=== PATIENT | male | born 1955 | race Caucasian/White ===

== ENCOUNTER → 2018-05-01 | Outpatient (CLI) | payer OTHER ==
[~2018-05-01] MED LIST: AMLODIPINE BESY10 MG PO; ANAPROX DS550 MG PO; ASPIRIN EC81 M1 PO; ASPIRIN325 PO; FISH OIL 1,0001 EAC5; FISH OIL 1,0001 EAC5 PO; FLEXERIL PO; HCTZ PO; HYDROCHLOROTH12.5 MG PO; LEVITRA PO; LOTENSIN40 MG PO; MOBIC15 MG PO; NORCO 5-325 TA1 EACH PO; NORFLEX100 MG PO; PRILOSEC 20 MG20 MG PO; WELCHOL 625 MG625 MG PO
--- NOTE | 2018-05-03 23:53 | SLE ---
[facility] [place] [address] POLYSOMNOGRAPHY STUDY Name: BERNARDO BERTRAND ALAN Room #: REG [facility].#: [id number] Admission: 05/01/18 ������������������ Attend Phys: Wang Rutledge MD Discharge: ������������������ Date of : 55 Report #: [id number] THIS REPORT FOR: //name// CC: Wang Gómez DO DATE OF SERVICE: 05/01/2018 ATTENDING PHYSICIAN: Dr. Isaac Gómez. The patient is a 62-year-old who weighs 320 pounds with a BMI of 43.4. The patient has history of sleep apnea many years ago, but has not been feeling refreshed after waking up. Averaging about 6 hours of sleep. The patient underwent another CPAP titration study to make sure the pressure is effective. During the night study, the patient spent 434 minutes in bed and slept for 346 minutes with a low sleep efficiency of 79.7%. Sleep latency was 10.5 minutes with a REM latency of 86 minutes. Overall sleep architecture showed increased stage 1 and stage 2 sleep, absent N3 sleep and slightly reduced REM sleep, which was 18% of total sleep time. EKG monitoring revealed an average heart rate of 63 beats per minute with a maximum 116 beats per minute. Frequent PVC's seen. Occassional sinus tachycardia seen. No clinically significant PLMS observed. The patient was placed on his home CPAP pressure of 13 cm water and titrated up to 18 cm water. At the final pressure, the patient slept for 70.8 minutes. The patient had supine sleep, but no REM sleep. The patient's AHI was reduced to 0 per hour. However, even at lower pressures the patient's AHI never remained more than 2 per hour. IMPRESSION: 1. Sleep apnea diagnosed previously. 2. 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 3. No clinically significant periodic limb movements of sleep. RECOMMENDATIONS: 1. CPAP at 18 cm water completely eliminated the patient's sleep apnea and should be used on a nightly basis, although the patient's home CPAP pressure of 13 cm water was also effective in reducing the patient's sleep apnea. 2. Follow up in 4-6 weeks to assess compliance with CPAP and to document clinical improvement. [address] [address] POLYSOMNOGRAPHY STUDY Name: JERZYBERNARDO [id number] Admission: 05/01/18 ������������������ Attend Phys: Wang Rutledge MD Discharge: ������������������ Date of : 55 Report #: [id number] 3. The patient's insomnia may be contributing to the patient's daytime sleepiness and it should be further evaluated and treated to improve the patient's sleep efficiency. 4. Weight loss is strongly advised. 5. Avoid [employer] depressants. ��������������������������������������������� <ELECTRONICALLY SIGNED> ���������������������������������������� By: Wang Rutledge MD ��������������������������������������������� 05/03/18 [id number] [id number] Wang Rutledge MD /desi
== END ==
LOC: SLEEPLAB 14:37
DX: G47.30 Sleep apnea, unspecified (principal); G47.00 Insomnia, unspecified

== ENCOUNTER → 2020-09-13 | Outpatient (CLI) | payer OTHER ==
[~2020-09-13] VITALS: Ht 182.9 cm; Wt 145.2 kg
[~2020-09-13] MED LIST changes: +OMEPRAZOLE 20 M20 M1 PO; +POTASSIUM99 M1 PO; +VITAMIN D325 MC1 PO
--- NOTE | ~2020-09-13 | P ---
[facility] [place] [address] PROCEDURE REPORT Name: BERNARDO BERTRAND Room #: REG [facility] Derrick.#: [id number] Admission: 09/13/20 Attend Phys: Eddie Rodriguez Discharge: Date of : 55 Report #: [id number] THIS REPORT FOR: cc: Isaac Gómez James A. DO McElhinney, Christian C. MD ~ DOC #: [id number] cc: DO Eddie Burroughs MD DATE OF SERVICE: 09/13/2020 PROCEDURE PERFORMED: Colonoscopy with biopsies. HISTORY OF PRESENT ILLNESS: The patient is a 65-year-old male with a history of multiple colon polyps on colonoscopy, last one being in 2018. He is here for three-year followup. He denies any symptoms, no family history of colon cancer. DESCRIPTION OF PROCEDURE: The risks and benefits of the procedure were explained to the patient, those risks including but not limited to bleeding, perforation and the risk of sedation. He understood these risks and gave informed consent. Sedation was given using propofol per anesthesia. Next, a digital rectal exam was initially performed, which was normal. Next, using a standard Olympus colonoscopy, scope was placed in the patient's anus and advanced under direct vision to the cecum. The overall prep was excellent. The cecum and ileocecal valve were normal in appearance. In the ascending colon, a 4 mm sessile polyp was noted and removed with cold forceps, otherwise normal. The transverse colon, a 3 mm sessile polyp, also removed with cold forceps. Descending colon, 4 mm sessile polyp, removed with cold forceps. Sigmoid colon, two 3-4 mm sessile polyps, removed with cold forceps. Rectum, two 3-4 mm sessile polyps were removed with cold forceps. On retroflexion, no abnormalities were noted. The scope was then withdrawn and the procedure terminated. The patient tolerated the procedure well. IMPRESSION: 1. Multiple small polyps as described above. 2. Otherwise, normal colonoscopy. RECOMMENDATIONS: 1. Await biopsy results. 2. Repeat colonoscopy in 3 years due to multiple polyps. Thank you for allowing me to participate in his care. Eddie Kulkarni MD [facility] [address] PROCEDURE REPORT Name: BERNARDO BERTRAND Room #: REG [facility] Guo#: [id number] Admission: 09/13/20 Attend Phys: Eddie Rodriguez Discharge: Date of : 55 Report #: [id number] By: [id number] Eddie Kulkarni MD /nt
--- NOTE | 2020-09-15 18:06 | PATH ---
[facility] [place] [address] PATHOLOGY RPT PROCEDURE Name: OSCAR BERTRAND SHANICE Room #: REG [facility] M.R.#: [id number] Admission: 09/13/20 Date of : 55 Discharge: Report #: [id number] Path Case #: [id number] [facility] Accession Number: [id number] . 01 Material submitted: . PART A: colon - ASCENDING COLON POLYP BX. Modifiers: ascending PART B: colon - TRANSVERSE COLON POLYP BX. Modifiers: transverse PART C: colon - DESCENDING COLON POLYP BX. Modifiers: descending PART D: sigmoid colon - SIGMOID COLON POLYP BX X2 PART E: rectum - RECTAL POLYP BX X2 . 01 Clinical history: . HX OF POLYPS . 02 Diagnosis: A. Polyp, ascending colon polyp, endoscopic biopsy: - Inflammatory polyp with hyperplastic changes. - Negative for dysplasia. . B. Polyp, transverse colon polyp, endoscopic biopsy: - Hyperplastic polyp. - Negative for dysplasia. . C. Polyp, descending colon polyp, endoscopic biopsy: - Hyperplastic polyp. - Negative for dysplasia. . D. Polyp x2, sigmoid colon polyp, endoscopic biopsy: - Hyperplastic polyp x2. - Negative for dysplasia. . E. Polyp x2, rectal polyp, endoscopic biopsy: - Hyperplastic polyp x2. - Negative for dysplasia. (IUV:lavonne; 09/15/2020) S 09/15/2020 1444 Local . 02 Electronically signed: . Dior Mcneill MD, Pathologist NPI- [id number] . 01 Gross description: . A. The specimen is received in formalin, labeled "Oscar Bertrand ascending colon polyp biopsy". Received are two segments of pale pavon tissue measuring 0.1 and 0.3 cm in maximum dimensions. The specimen is submitted entirely in cassette [place] [address] PATHOLOGY RPT PROCEDURE Name: OSCAR BERTRAND Room #: REG [facility] Guo#: [id number] Admission: 09/13/20 Date of : 55 Discharge: Report #: [id number] Path Case #: [id number] B. The specimen is received in formalin, labeled "Oscar Bertrand transverse colon polyp biopsy". Received are three segments of pale pavon tissue ranging in size from 0.2-0.4 cm in maximum dimensions. The specimen is submitted entirely in cassette B1. . C. The specimen is received in formalin, labeled "Oscar Stew, descending colon polyp biopsy". Received are three segments of pale pavon tissue ranging in size from 0.3-0.5 cm in maximum dimensions. The specimen is submitted entirely in cassette C1. . D. The specimen is received in formalin, labeled "Oscar Bertrand, sigmoid colon polyps biopsy x2". Received are two segments of pale pavon tissue measuring 0.2 and 0.3 cm in maximum dimensions. The specimen is submitted entirely in cassette D1. . E. The specimen is received in formalin, labeled "Oscar Bertrand, rectal polyp biopsy x2". Received are three segments of pale pavon tissue ranging in size from 0.2-0.4 cm in maximum dimensions. The specimen is submitted entirely in cassette E1. (CAA; 09/14/2020) QAC/QAC 09/14/2020 193 Local . 02 Pathologist provided ICD-10: K63.5, K62.1, Z86.010 . 02 CPT . 882934, 173306, 609869, 397955, 234243 Specimen Comment: A courtesy copy of this report has been sent to [phone], [phone] Specimen Comment: [phone] Specimen Comment: Report sent to / DR PERALTA Performed at: [address], [place], [place] [id number] MD Felix Tolentino MD Phone: [phone] Performed at: [address] [id number] MD Dior Mcneill MD Phone: [phone]
== END | disposition home or self-care (01) ==
LOC: GI 06:54
PROVIDERS: ATTEND Specialist
DX: Z12.11 Encounter for screening for malignant neoplasm of colon (principal); Z86.010 Personal history of colon polyps; K51.40 Inflammatory polyps of colon without complications; K62.1 Rectal polyp; I10 Essential (primary) hypertension; G47.30 Sleep apnea, unspecified; K21.9 Gastro-esophageal reflux disease without esophagitis; Z98.890 Other specified postprocedural states; Z79.899 Other long term (current) drug therapy; Z87.891 Personal history of nicotine dependence
CPT/HCPCS: 62110; 62900